=== PATIENT | female | born 1960 | race Caucasian/White ===

== ENCOUNTER → 2016-12-05 | Outpatient (CLI) | payer OTHER ==
--- NOTE | 2016-12-05 16:45 | XR ---
EXAMINATION TYPE: XR chest 2V DATE OF EXAM: 12/05/2016 4:37 PM COMPARISON: History of asthma presents with cough. HISTORY: Prior chest x-ray November 15, 2010. TECHNIQUE: Frontal and lateral views of the chest are obtained. FINDINGS: There is no focal air space opacity, pleural effusion, or pneumothorax seen. The cardiac silhouette size is within normal limits. Underlying scoliosis is redemonstrated. Old left-sided later al rib fractures are less well-seen on current study due to interval healing. IMPRESSION: No acute cardiopulmonary process.
== END | disposition home or self-care (01) ==
LOC: RADXRMAIN 16:24
PROVIDERS: ATTEND Nurse Practitioner Family
DX: R05 Cough (principal)
CPT/HCPCS: 71020

== ENCOUNTER 2017-02-23 18:57 | Emergency (ER) | payer OTHER ==
[2017-02-23] MEDS ORDERED: predniSONE 20 MG TAB PO STA (19:47)
[2017-02-23] MEDS ORDERED: ALBUTEROL NEBULIZED 2.5 MG/3 ML INHALATION STA (19:47)
[2017-02-23] MEDS ORDERED: IPRATROPIUM-ALBUTEROL 3 ML NEB INHALATION STA (19:47)
--- NOTE | 2017-02-23 20:09 | XR ---
EXAMINATION TYPE: XR chest 2V DATE OF EXAM: 02/23/2017 8:05 PM COMPARISON: 12/05/2016 HISTORY: Short of breath TECHNIQUE: Frontal and lateral views of the chest are obtained. FINDINGS: Heart and mediastinum are normal. Lungs are clear. There is a lower thoracic dextroscolios is. There are no hilar masses. There is no pleural effusion. IMPRESSION: No active cardiopulmonary disease. No change.
[2017-02-23 20:33] LABS: Basophils % (A) 0 %; CH 31.3; CHCM 34.4; Eosinophils % (A) 0 %; HCT 41.2 % (34.0-46.0); HDW 2.46; HGB 14.2 gm/dL (11.4-16.0); Luc # (Auto) 0.06; Luc % (Auto) 1; Lymphocytes # (A) 0.5 k/uL (1.0-4.8); Lymphocytes % (A) 8 %; MCH 31.4 pg (25.0-35.0); MCHC 34.3 g/dL (31.0-37.0); MCV 91.5 fL (80.0-100.0); Mean Platelet Volume 6.8; Monocytes # (A) 0.2 k/uL (0-1.0); Monocytes % (A) 3 %; Neutrophils # (A) 5.4 k/uL (1.3-7.7); Neutrophils % (A) 88 %; WBC 6.1 k/uL (3.8-10.6); WBC (Perox) 6.19
[2017-02-23 20:58] LABS: ALT 33 U/L (9-52); AST 26 U/L (14-36); Alkaline Phosphatase 69 U/L (38-126); Anion Gap 14 mmol/L; Blood Urea Nitrogen 8 mg/dL (7-17); Calcium 9.8 mg/dL (8.4-10.2); Carbon Dioxide 21 mmol/L (22-30); Chloride 108 mmol/L (98-107); Glucose 128 mg/dL (74-99); Non-African American GFR(MDRD) >60 (>60 ml/min/1.73 sqM); Potassium 4.3 mmol/L (3.5-5.1); Sodium 143 mmol/L (137-145); Total Bilirubin 0.5 mg/dL (0.2-1.3); Total Protein 7.7 g/dL (6.3-8.2)
--- NOTE | 2017-02-23 21:28 | ED ---
SOB HPI - General Chief Complaint: Shortness of Breath Stated Complaint: Asthma Time Seen by Provider: 02/23/17 19:38 Source: patient Mode of arrival: ambulatory Limitations: no limitations - History of Present Illness Initial Comments: Patient complains of cough and difficulty breathing. She was started on breathing treatments and steroids. She is not feeling any better. She has no chest pain. She has no back pain. She has no lightheadedness or dizziness. She has no pain or swelling the legs. She has no palpitations. She has no neck pain or stiffness. Her symptoms have been getting progressively worse for couple days. - Related Data Home Medications Medication Instructions Recorded Confirmed ALPRAZolam [Xanax] 0.25 mg PO DAILY PRN 05/17/16 02/23/17 Albuterol Inhaler [Ventolin Hfa 2 puff INHALATION RT-Q6H PRN 05/17/16 02/23/17 Inhaler] Budesonide-Formot 160-4.5 Mcg 2 puff INHALATION RT-BID 05/17/16 02/23/17 [Symbicort 160-4.5 Mcg Inhaler] Levothyroxine Sodium [Synthroid] 100 mcg PO DAILY 05/17/16 02/23/17 Vitamin D Drops 1 drop PO DAILY 05/17/16 02/23/17 Albuterol Nebulized [Ventolin 2.5 mg INHALATION DAILY PRN 02/23/17 02/23/17 Nebulized] Ibuprofen [Motrin] 800 mg PO DAILY PRN 02/23/17 02/23/17 Nasal [place] Unknown 1 spray NASAL DAILY PRN 02/23/17 02/23/17 Previous Rx's Medication Instructions Recorded Azithromycin [Zithromax Z-pack] 250 mg PO DIRECTED #6 tab 02/23/17 predniSONE 50 mg PO DAILY #4 tab 02/23/17 Allergies Allergy/AdvReac Type Severity Reaction Status Date / Time latex Allergy Rash/Hives Verified 02/23/17 20:03 hydromorphone HCl AdvReac Confusion Verified 02/23/17 20:03 [From Dilaudid] Review of Systems ROS Statement: Those systems with pertinent positive or pertinent negative responses have been documented in the HPI. ROS Other: All systems not noted in ROS Statement are negative. Past Medical History Past Medical History: Asthma, Osteoarthritis (OA), Pneumonia, Thyroid Disorder History of Any Multi-Drug Resistant Organisms: None Reported Past Surgical History: Section, Orthopedic Surgery Additional Past Surgical History / Comment(s): rt hip surgery(pins), left knee arthroscopy Past Anesthesia/Blood Transfusion Reactions: No Reported Reaction Past Psychological History: No Psychological Hx Reported Smoking Status: Former smoker Past Alcohol Use History: Occasional Additional Past Alcohol Use History / Comment(s): quit smoking 02/2016, smoked for 20 yrs- 1/2 PPD Past Drug Use History: None Reported - Past Family History Mother Family Medical History: No Reported History General Exam Limitations: no limitations General appearance: alert, in no apparent distress Head exam: Present: atraumatic, normocephalic, normal inspection Eye exam: Present: normal appearance, PERRL, EOMI. Absent: scleral icterus, conjunctival injection, periorbital swelling ENT exam: Present: normal exam, mucous membranes moist Neck exam: Present: normal inspection. Absent: tenderness, meningismus, lymphadenopathy Respiratory exam: Present: normal lung sounds bilaterally, wheezes. Absent: respiratory distress, rales, rhonchi, stridor Cardiovascular Exam: Present: regular rate, normal rhythm, normal heart sounds. Absent: systolic murmur, diastolic murmur, rubs, gallop, clicks GI/Abdominal exam: Present: soft, normal bowel sounds. Absent: distended, tenderness, guarding, rebound, rigid Extremities exam: Present: normal inspection, full ROM, normal capillary refill. Absent: tenderness, pedal edema, joint swelling, calf tenderness Back exam: Present: normal inspection Neurological exam: Present: alert, oriented X3, CN II-XII intact Psychiatric exam: Present: normal affect, normal mood Skin exam: Present: warm, dry, intact, normal color. Absent: rash Course Vital Signs 02/23/17 02/23/17 02/23/17 18:58 20:20 20:33 Temperature 97.3 F L Pulse Rate 106 H 88 101 H Respiratory 20 Rate Blood Pressure 157/78 O2 Sat by Pulse 95 Oximetry Medical Decision Making - Medical Decision Making Patient complains of difficulty breathing. Her chest x-rays negative. Her EKG is normal. Her laboratory studies are all normal. She is given breathing treatments and steroids. She is feeling better. Her vital signs are normal. She does not require admission to hospital. She is stable for outpatient follow -up. - Lab Data Result diagrams: 02/23/17 20:15 02/23/17 20:15 Lab Results 02/23/17 02/23/17 02/23/17 Range/Units 20:15 20:15 20:15 WBC 6.1 (3.8-10.6) k/uL RBC 4.50 (3.80-5.40) m/uL Hgb 14.2 (11.4-16.0) gm/dL Hct 41.2 (34.0-46.0) % MCV 91.5 (80.0-100.0) fL MCH 31.4 (25.0-35.0) pg MCHC 34.3 (31.0-37.0) g/dL RDW 13.0 (11.5-15.5) % Plt Count 325 (150-450) k/uL Neutrophils % 88 % Lymphocytes % 8 % Monocytes % 3 % Eosinophils % 0 % Basophils % 0 % Neutrophils # 5.4 (1.3-7.7) k/uL Lymphocytes # 0.5 L (1.0-4.8) k/uL Monocytes # 0.2 (0-1.0) k/uL Eosinophils # 0.0 (0-0.7) k/uL Basophils # 0.0 (0-0.2) k/uL Sodium 143 (137-145) mmol/L Potassium 4.3 (3.5-5.1) mmol/L Chloride 108 H (98-107) mmol/L Carbon Dioxide 21 L (22-30) mmol/L Anion Gap 14 mmol/L BUN 8 (7-17) mg/dL Creatinine 0.56 (0.52-1.04) mg/dL Est GFR (MDRD) Af Amer >60 (>60 ml/min/1.73 sqM) Est GFR (MDRD) Non-Af >60 (>60 ml/min/1.73 sqM) Glucose 128 H (74-99) mg/dL Calcium 9.8 (8.4-10.2) mg/dL Magnesium 2.0 (1.6-2.3) mg/dL Total Bilirubin 0.5 (0.2-1.3) mg/dL AST 26 (14-36) U/L ALT 33 (9-52) U/L Alkaline Phosphatase 69 (38-126) U/L Troponin I (0.000-0.034) ng/mL NT-Pro-B Natriuret Pep 141 pg/mL Total Protein 7.7 (6.3-8.2) g/dL Albumin 4.4 (3.5-5.0) g/dL 02/23/17 Range/Units 20:15 WBC (3.8-10.6) k/uL RBC (3.80-5.40) m/uL Hgb (11.4-16.0) gm/dL Hct (34.0-46.0) % MCV (80.0-100.0) fL MCH (25.0-35.0) pg MCHC (31.0-37.0) g/dL RDW (11.5-15.5) % Plt Count (150-450) k/uL Neutrophils % % Lymphocytes % % Monocytes % % Eosinophils % % Basophils % % Neutrophils # (1.3-7.7) k/uL Lymphocytes # (1.0-4.8) k/uL Monocytes # (0-1.0) k/uL Eosinophils # (0-0.7) k/uL Basophils # (0-0.2) k/uL Sodium (137-145) mmol/L Potassium (3.5-5.1) mmol/L Chloride (98-107) mmol/L Carbon Dioxide (22-30) mmol/L Anion Gap mmol/L BUN (7-17) mg/dL Creatinine (0.52-1.04) mg/dL Est GFR (MDRD) Af Amer (>60 ml/min/1.73 sqM) Est GFR (MDRD) Non-Af (>60 ml/min/1.73 sqM) Glucose (74-99) mg/dL Calcium (8.4-10.2) mg/dL Magnesium (1.6-2.3) mg/dL Total Bilirubin (0.2-1.3) mg/dL AST (14-36) U/L ALT (9-52) U/L Alkaline Phosphatase (38-126) U/L Troponin I <0.012 (0.000-0.034) ng/mL NT-Pro-B Natriuret Pep pg/mL Total Protein (6.3-8.2) g/dL Albumin (3.5-5.0) g/dL 02/23/17 21:25 Twelve-lead EKG is obtained, interpreted by me showing ventricular rate 97 bpm, normal CO interval and QRS, axis, no ST elevation or depression, interpreted by me as normal sinus rhythm. Disposition Clinical Impression: Asthma with exacerbation Disposition: HOME SELF-CARE Condition: Good Instructions: Asthma (ED) Prescriptions: Azithromycin [Zithromax Z-pack] 250 mg PO DIRECTED #6 tab predniSONE 50 mg PO DAILY #4 tab Time of Disposition: 21:27
[2017-02-23 21:35] VITALS: BP 122/79; PULSE 95; RESP 16; TEMP 97.9
== END 2017-02-23 21:35 | disposition home or self-care (01) ==
LOC: EC 18:57
DX: J45.901 Unspecified asthma with (acute) exacerbation (principal); Z79.51 Long term (current) use of inhaled steroids; Z79.899 Other long term (current) drug therapy; Z88.5 Allergy status to narcotic agent; Z91.040 Latex allergy status; Z87.01 Personal history of pneumonia (recurrent); E07.9 Disorder of thyroid, unspecified; Z87.891 Personal history of nicotine dependence
CPT/HCPCS: 36415; 94640; 93005; 83880; 80053; 83735; 84484; 85025; 71020; 99285; J7512

== ENCOUNTER 2019-07-16 22:18 | Emergency (ER) | payer BC, OTHER ==
[2019-07-16 22:22] VITALS: TEMP 98
[2019-07-16] MEDS ORDERED: SODIUM CHLORIDE 0.9% 1,000 ML IV ONE (22:53)
[2019-07-16] MEDS ORDERED: FAMOTIDINE 20 MG/2 ML VIAL IV STA (22:53)
[2019-07-16] MEDS ORDERED: diphenhydrAMINE 50 MG/ML 1 ML VIAL IVP STA (22:53)
[2019-07-16] MEDS ORDERED: methylPREDNISolone SOD SUCCI 125 MG/2 ML VIAL IV STA (22:53)
[2019-07-16] MEDS ORDERED: ONDANSETRON 4 MG/2 ML VIAL IVP STA (23:26)
[2019-07-16 23:49] VITALS: RESP 18
[2019-07-17] MEDS ORDERED: IBUPROFEN 600 MG TAB PO STA (00:35)
[2019-07-17 00:46] VITALS: BP 126/75; PULSE 89
--- NOTE | 2019-07-17 00:47 | ED ---
Allergic Reaction HPI - General Chief complaint: Allergic Reaction Stated complaint: Stung by bee's, doesn't feel right Time Seen by Provider: 07/16/19 22:25 Source: patient Mode of arrival: ambulatory Limitations: no limitations - History of Present Illness Initial Comments: 58 year-old female patient presents to the emergency department today for evalu ation of possible allergic reaction. Patient states she was stung by four times by a hornet around 1pm this afternoon. She was stung twice in the leg and twice in the left upper arm. Patient states that a couple of hours ago she started to feel unwell. Patient states she's been having abdominal cramping and nausea. She is reporting feeling anxious and a dry feeling in her throat. Patient state s she did take an [id number] allergy medication but states she did not take any Benadryl. She denies ever having been stung before. She denies any lip or tongue swelling. Denies any shortness of breath or wheezing. Patient denies any recent rash, fever, chills, vomiting, diarrhea, constipation, back pain, numbness, tingling, dizziness, weakness, hematuria, dysuria, urinary urgency, urinary frequency, headache, visual changes, or any other complaints. - Related Data Home Medications Medication Instructions Recorded Confirmed ALPRAZolam [Xanax] 0.25 mg PO DAILY PRN 05/17/16 02/23/17 Albuterol Inhaler [Ventolin Hfa 2 puff INHALATION RT-Q6H PRN 05/17/16 02/23/17 Inhaler] Budesonide-Formot 160-4.5 Mcg 2 puff INHALATION RT-BID 05/17/16 02/23/17 [Symbicort 160-4.5 Mcg Inhaler] Levothyroxine Sodium [Synthroid] 100 mcg PO DAILY 05/17/16 02/23/17 Vitamin D Drops 1 drop PO DAILY 05/17/16 02/23/17 Albuterol Nebulized [Ventolin 2.5 mg INHALATION DAILY PRN 02/23/17 02/23/17 Nebulized] Ibuprofen [Motrin] 800 mg PO DAILY PRN 02/23/17 02/23/17 Nasal [place] Unknown 1 spray NASAL DAILY PRN 02/23/17 02/23/17 Previous Rx's Medication Instructions Recorded Albuterol Nebulized [Ventolin 2.5 mg INHALATION Q6H #90 nebu 02/23/17 Nebulized] Azithromycin [Zithromax Z-pack] 250 mg PO DIRECTED #6 tab 02/23/17 Carbamide Peroxide [Debrox Otic] 5 drops RIGHT EAR BID #30 ml 02/23/17 predniSONE 50 mg PO DAILY #4 tab 02/23/17 EPINEPHrine [Epipen 2-Jordan] 0.3 mg IM ONCE PRN #1 pack 07/17/19 Famotidine [Pepcid] 20 mg PO DAILY #3 tablet 07/17/19 predniSONE 50 mg PO DAILY #3 tab 07/17/19 Allergies Allergy/AdvReac Type Severity Reaction Status Date / Time latex Allergy Rash/Hives Verified 07/16/19 22:20 hydromorphone HCl AdvReac Confusion Verified 07/16/19 22:20 [From Dilaudid] Review of Systems ROS Statement: Those systems with pertinent positive or pertinent negative responses have been documented in the HPI. ROS Other: All systems not noted in ROS Statement are negative. Past Medical History Past Medical History: Asthma, Osteoarthritis (OA), Pneumonia, Thyroid Disorder History of Any Multi-Drug Resistant Organisms: None Reported Past Surgical History: Section, Orthopedic Surgery Additional Past Surgical History / Comment(s): rt hip surgery(pins), left knee arthroscopy Past Anesthesia/Blood Transfusion Reactions: No Reported Reaction Past Psychological History: No Psychological Hx Reported Smoking Status: Former smoker Past Alcohol Use History: Occasional Past Drug Use History: None Reported - Past Family History Mother Family Medical History: No Reported History General Exam Limitations: no limitations General appearance: alert, in no apparent distress, other (This is a well- developed, well-nourished adult female patient in no acute distress. Vital signs upon presentation are temperature 98.0F, pulse 103, respirations 20, blood pressure 131/89, pulse ox 99% on room air.) Eye exam: Present: normal appearance, PERRL, EOMI. Absent: scleral icterus, con junctival injection, periorbital swelling ENT exam: Present: normal exam, normal oropharynx, mucous membranes moist Respiratory exam: Present: normal lung sounds bilaterally. Absent: respiratory distress, wheezes, rales, rhonchi, stridor Cardiovascular Exam: Present: regular rate, normal rhythm, normal heart sounds. Absent: systolic murmur, diastolic murmur, rubs, gallop, clicks GI/Abdominal exam: Present: soft, normal bowel sounds. Absent: distended, tenderness, guarding, rebound, rigid Extremities exam: Present: full ROM, normal capillary refill, other (There is erythematous wheal noted to the left upper arm. Erythematous wheal noted to the left lateral ankle.). Absent: normal inspection, tenderness, pedal edema, joint swelling, calf tenderness Neurological exam: Present: alert, oriented X3, CN II-XII intact Psychiatric exam: Present: normal affect, normal mood Skin exam: Present: warm, dry, intact, normal color. Absent: rash Course Vital Signs 07/16/19 07/16/19 07/17/19 22:19 23:21 00:44 Temperature 98.0 F Pulse Rate 103 H 95 89 Respiratory 20 18 18 Rate Blood Pressure 131/89 126/82 126/75 O2 Sat by Pulse 99 99 98 Oximetry Medical Decision Making - Medical Decision Making 58 year-old female patient percents to the emergency department today for p ossible ALLERGIC reaction. Patient was stung by a hornet 4 times earlier in the afternoon. She developed abdominal cramping, anxiety, and throat discomfort. Physical examination reveals clear equal lung sounds. Should have localized reaction and swelling to the areas. Patient was given IV fluids and medication here in the emergency department. Upon reevaluation she does report improvement of symptoms. She is requesting discharge home. She'll be discharged with a prescription for prednisone, Pepcid, and EpiPens. She is instructed to continue taking Benadryl every 6 hours. She is instructed to follow-up with her primary care physician for recheck in 1-2 days. Return parameters were discussed in detail. She verbalizes understanding and agrees with this plan. Disposition Clinical Impression: Allergic reaction to bee sting Disposition: HOME SELF-CARE Condition: Good Instructions (If sedation given, give patient instructions): Insect Bite or Sting (ED), General Allergic Reaction (ED) Additional Instructions: Complete medication prescriptions in full. Continue Benadryl every 6 hours as needed. Use EpiPen if you are stung again and have worsening reaction including throat closing, shortness of breath, lip or tongue swelling. Follow-up with your primary care physician for recheck in 1-2 days. Return to the emergency department immediately for any new, worsening, or concerning symptoms. Prescriptions: EPINEPHrine [Epipen 2-Jordan] 0.3 mg IM ONCE PRN #1 pack PRN Reason: Anaphylaxis Famotidine [Pepcid] 20 mg PO DAILY #3 tablet predniSONE 50 mg PO DAILY #3 tab Is patient prescribed a controlled substance at d/c from ED?: No Referrals: Abdi Camargo MD [Primary Care Provider] - 1-2 days Time of Disposition: 00:55
== END 2019-07-17 01:11 | disposition home or self-care (01) ==
LOC: EC 22:18
DX: T63.441A Toxic effect of venom of bees, accidental (unintentional), initial encounter (principal); R10.9 Unspecified abdominal pain; J39.2 Other diseases of pharynx; J45.909 Unspecified asthma, uncomplicated; E07.9 Disorder of thyroid, unspecified; Z87.891 Personal history of nicotine dependence; Z79.51 Long term (current) use of inhaled steroids; Z79.890 Hormone replacement therapy; Z91.040 Latex allergy status; Z88.5 Allergy status to narcotic agent
CPT/HCPCS: 99283; 96374; 96375 ×3; 96361; J1200; J2930; J2405

== ENCOUNTER → 2023-12-29 | Outpatient (CLI) | payer BC ==
--- NOTE | 2024-01-01 07:28 | MM ---
Reason for Exam: Screening (asymptomatic). Last mammogram was performed 1 year(s) and 3 month(s) ago. Patient History: Menarche at age 15. First Full-Term at age 26. Postmenopausal. Unspecified Hormone for 11 years from age 35 until age 46. Risk Values: Yanet 5 year model risk: 1.3%. NCI Lifetime model risk: 6.4%. Prior Study Comparison: 06/04/2020 Bilateral MG 3D screening mammo w/cad, Unknown. 07/01/2021 Bilateral MG 3D screening mammo w/cad, Unknown. 10/13/2022 Bilateral MG 3D screening mammo w/cad, Unknown. Tissue Density: The breast tissue is almost entirely fat. Findings: Analyzed By CAD. There is no suspicious group of microcalcifications or new suspicious mass. Overall Assessment: Negative, BI-RAD 1 Management: Screening Mammogram of both breasts in [address] [facility] will attempt to contact patient to return for supplemental views and ultrasound if indicated. Patient should continue monthly self-breast exams. A clinical breast exam by your physician is recommended on an annual basis. This exam should not preclude additional follow-up of suspicious palpable abnormalities. Note on Yanet scores and lifetime risk: 1. A Yanet score greater than 3% is considered moderate risk. If this is the case, consider specialist referral to assess eligibility for a risk reducing agent. 2. If overall lifetime risk for the development of breast cancer is 20% or higher, the patient may qualify for future screening with alternating mammogram and breast MRI. Electronically signed and approved by: Pool Leonard DO
--- NOTE | 2024-01-01 07:40 | BD ---
EXAMINATION TYPE: Axial Bone Density DATE OF EXAM: 12/29/2023 CLINICAL HISTORY: 63 years old Female. ICD-10 CODE: M85.89 disorder of bone Height: 61 Weight: 133 FRAX RISK QUESTIONS: Family History (Parent hip fracture): no History of Fracture in Adulthood: yes Secondary Osteoporosis: no RISK FACTORS HISTORY OF: Surgery to Hip(right): When: 2016 MEDICATIONS: Thyroid Medications: yes Which medication: Levothyroxine How Lon+ years EXAM MEASUREMENTS: Bone mineral densitometry was performed using the [employer] System. Bone mineral density as measured about the Lumbar spine is: ----- L1-L4(G/cm2): 1.097 T Score Values are as follows: ----- L1: -0.1 ----- L2: -1.9 ----- L3: -1.1 ----- L4: 0.1 ----- L1-L4: -0.7 Z Score Values are as follows: ----- L1: 1.4 ----- L2: -0.4 ----- L3: 0.4 ----- L4: 1.6 ----- L1-L4: 0.8 Bone mineral density has: Decreased -9.4% since study of: 11/17/2010 Bone mineral density about the L hip (g/cm2): 0.836 T Score values are as follows: -----L Neck: -1.1 -----L Total: -1.4 Z Score values are as follows: -----L Neck: 0.3 -----L Total: -0.3 Bone mineral density has: Decreased -23.4% since study of: 11/17/2010 FRAX%s: The graph provided illustrates a 13.0% chance for a major osteoporotic fx and a 0.9% chance f or the hips probability for fx in 10 years time. IMPRESSION: Osteopenia (T Score between -2.5 and -1). There is slightly increased risk of fracture and the patient may be considered for treatment. Re-Screen 2-5 years. NOTE: T-SCORE=SD OF THE YOUNG ADULT MEAN.
== END | disposition home or self-care (01) ==
LOC: RADMAMWWP 15:43
PROVIDERS: ATTEND Family Medicine
DX: Z12.31 Encounter for screening mammogram for malignant neoplasm of breast (principal); M85.89 Other specified disorders of bone density and structure, multiple sites; Z78.0 Asymptomatic menopausal state
CPT/HCPCS: 77063; 77067; 77080

== ENCOUNTER → 2024-05-16 | Outpatient (CLI) | payer BC ==
--- NOTE | 2024-05-16 15:06 | XR ---
EXAMINATION TYPE: XR chest 2V DATE OF EXAM: 05/16/2024 COMPARISON: 337 HISTORY: Shortness of breath TECHNIQUE: Frontal and lateral views of the chest are obtained. FINDINGS: Scattered senescent parenchymal changes noted. Hyperinflation compatible with COPD. Mild peribronchia l cuffing may be present. Correlate for asthma or bronchitis. No evidence for infiltrate. No evidence for atelectasis. Heart size is stable. Mediastinal structures are stable and grossly unremarkable. No evidence for hilar prominence. Degenerative changes dorsal spine. Severe thoracolumbar scoliosis noted. IMPRESSION: 1. Mild peribronchial cuffing may be present. Correlate for asthma or bronchitis. No evidence for pne umonia.
== END | disposition home or self-care (01) ==
LOC: RADXRMAIN 14:40
PROVIDERS: ATTEND Family Medicine
DX: J06.9 Acute upper respiratory infection, unspecified (principal)
CPT/HCPCS: 71046

== ENCOUNTER → 2025-01-22 | Outpatient (CLI) | payer BC | END | disposition home or self-care (01) | LOC: LABPAT 10:53 | PROVIDERS: ATTEND Orthopaedic Surgery | DX: Z01.812 Encounter for preprocedural laboratory examination (principal); M17.11 Unilateral primary osteoarthritis, right knee; Z22.322 Carrier or suspected carrier of Methicillin resistant Staphylococcus aureus | CPT/HCPCS: 87070 ==

== ENCOUNTER 2025-02-18 05:46 | Day surgery (SDC) | payer BC ==
--- NOTE | 2025-02-17 08:27 | P.HPOR ---
History of Present Illness H&P Date: 02/17/25 Chief Complaint: Right knee pain The patient is a 64-year-old retired female who presents with progressive right knee pain for the past year. She is having pain with weightbearing activities. She notes intermittent giving way. She has tried medications in addition to her previous injection without much relief. She notes daily pain that significantly limits her. Review of Systems Per HPI Past Medical History Past Medical History: Asthma, Hyperlipidemia, Osteoarthritis (OA), Pneumonia, Thyroid Disorder Additional Past Medical History / Comment(s): seasonal allergies History of Any Multi-Drug Resistant Organisms: None Reported Past Surgical History: Section, Joint Replacement, Orthopedic Surgery Additional Past Surgical History / Comment(s): rt hip surgery(pins) and replacement, left knee arthroscopy, left knee replaced, sinus surgery, colonoscopy Past Anesthesia/Blood Transfusion Reactions: No Reported Reaction Additional Past Anesthesia/Blood Transfusion Reaction / Comment(s): daughter slow to wake Smoking Status: Former smoker - Past Family History Mother Family Medical History: No Reported History Additional Family Medical History / Comment(s): kidney disease Father Family Medical History: Cancer Additional Family Medical History / Comment(s): lung cancer Medications and Allergies Home Medications Medication Instructions Recorded Confirmed Type Albuterol Inhaler [Ventolin Hfa 2 puff INHALATION RT-Q6H PRN 05/17/16 02/12/25 History Inhaler] Budesonide-Formot 160-4.5 Mcg 2 puff INHALATION RT-BID 05/17/16 02/12/25 History [Symbicort 160-4.5 Mcg Inhaler] Levothyroxine Sodium [Synthroid] 100 mcg PO DAILY 05/17/16 02/12/25 History Albuterol Nebulized [Ventolin 2.5 mg INHALATION DAILY PRN 02/23/17 02/12/25 History Nebulized] Ibuprofen [Motrin] 800 mg PO BID 02/23/17 02/12/25 History EPINEPHrine [Epipen 2-Jordan] 0.3 mg IM ONCE PRN #1 pack 07/17/19 02/12/25 Rx Atorvastatin [Lipitor] 10 mg PO DAILY 02/12/25 02/12/25 History Fluticasone Nasal [place] [Flonase 1 spray EA NOSTRIL DAILY PRN 02/12/25 02/12/25 History Nasal [place]] Gabapentin [Neurontin] 100 mg PO HS 02/12/25 02/12/25 History Allergies Allergy/AdvReac Type Severity Reaction Status Date / Time latex Allergy Rash/Hives Verified 02/12/25 10:38 shellfish derived [Shrimp] Allergy testing. Verified 02/12/25 10:38 shrimp Allergy per testing Verified 02/12/25 10:38 hydromorphone HCl AdvReac Confusion Verified 02/12/25 10:38 [From Dilaudid] Physical Examination - Knee right Appearance: effusion Effusion grade: grade 1 Varus alignment in stance: 5 degrees Tenderness with palpation: anterior, medial Pain: throughout ROM Gait: limping ROM: extension: -5 degrees ROM: flexion: 120 degrees Crepitus with motion: Yes Strength: extension: 5/5 Strength: flexion: 5/5 Meniscal tests: medial meniscal tests: positive, medial joint line pain: positive Results The patient is a well-developed well-nourished female approximately 5 foot 2, 137 pounds of mesomorphic habitus. HEENT exam is nonfocal, neck is supple. She has painless passive motion of the right hip. Straight leg raise is negative. She is tender about the medial joint line of the right knee. Collaterals are stable, Mark's negative, Ronda's is equivocal. Her distal neurovascular exam appears intact in the right lower extremity. She does have an antalgic gait pattern. - Diagnostic results Knee x-ray: image reviewed (X-rays of the right knee obtained the office show severe medial compartment narrowing with subchondral sclerosis and flattening of the articular surface.) Assessment and Plan Assessment: Right knee severe medial compartment osteoarthrosis Plan: I talked to the patient at length regarding her condition along with treatment options. At this point she is quite symptomatic having pain and mechanical symptoms related to her right knee osteoarthrosis despite conservative measures. After a thorough discussion she opts to proceed with surgery. We will plan to proceed with right total knee arthroplasty. Risks and benefits were discussed at length in layman's terms. We will institute DVT prophylaxis postoperatively.
[~2025-02-18 05:46] MED LIST: TRANEXAMIC 1,000 MG/100ML-NACL 1,000 MG in SALINE 1 100ML.BAG IVPB PRN
[2025-02-18] MEDS: IV FLUID CONTINUATION 1,000 ML IV ONE ×2 (06:13→10:57)
[2025-02-18] MEDS: ACETAMINOPHEN TAB 500 MG TAB PO PRN (06:44)
[2025-02-18] MEDS: MELOXICAM 7.5 MG TAB PO PRN (06:44)
[2025-02-18] MEDS: LACTATED RINGERS 1,000 ML IV SCH (06:45)
[2025-02-18] MEDS: DEXAMETHASONE SOD PHOSPHATE 4 MG/ML 1 ML VIAL IV ONE (06:45)
[2025-02-18] MEDS: ONDANSETRON 4 MG/2 ML VIAL IVP ONE (06:45)
[2025-02-18] MEDS: MIDAZOLAM 2 MG/2 ML VIAL IV ONE (07:05)
[2025-02-18] MEDS ORDERED: SUCCINYLCHOLINE CHLORIDE 200 MG/10 ML VIAL IV ONE (07:33)
[2025-02-18] MEDS ORDERED: LIDOCAINE 1% INJ 10MG/ML (20 ML MDV) ONE (07:33)
[2025-02-18] MEDS ORDERED: ROPIVACAINE 5 MG/ML 30 ML VIAL ONE (07:33)
[2025-02-18] MEDS ORDERED: DEXAMETHASONE SOD PHOSPHATE 4 MG/ML 1 ML VIAL ONE (07:33)
[2025-02-18] MEDS ORDERED: PROPOFOL 10 MG/ML 20 ML VIAL IV ONE (07:33)
[2025-02-18] MEDS ORDERED: MIDAZOLAM 2 MG/2 ML VIAL ONE (07:33)
[2025-02-18] MEDS ORDERED: fentaNYL (PF) 50 MCG/ML 2 ML AMP ONE (07:33)
[2025-02-18] MEDS ORDERED: ROCURONIUM 10 MG/ML (5 ML VIAL) IV ONE (07:33)
[2025-02-18] MEDS ORDERED: TRANEXAMIC 1,000 MG/100ML-NACL PREMIX BAG ONE (07:33)
[2025-02-18] MEDS ORDERED: GLYCOPYRROLATE 0.2 MG/ML 2 ML VIAL ONE (07:33)
[2025-02-18] MEDS ORDERED: NEOSTIGMINE 1 MG/ML 10 ML VIAL ONE (07:33)
[2025-02-18] MEDS: ceFAZolin 1,000 MG in SODIUM CHLORIDE 0.9% 1,000 ML IRRIGATION ONE (08:16)
[2025-02-18] MEDS: LACTATED RINGERS 1,000 ML IV ONE (08:48)
[2025-02-18] MEDS ORDERED: MAGNESIUM HYDROXIDE 2,400 MG/30 ML CUP PO PRN (09:17)
[2025-02-18] MEDS ORDERED: hydrOXYzine pamoate 25 MG CAP PO PRN (09:17)
[2025-02-18] MEDS ORDERED: HYDROcodone/APAP 5-325MG 1 EACH TAB PO PRN ×2 (09:17→19:16)
[2025-02-18] MEDS ORDERED: HYDROmorphone 0.5 MG/0.5 ML SYRINGE IVP PRN (09:17)
[2025-02-18] MEDS ORDERED: NALOXONE 0.4 MG/ML 1 ML VIAL IV PRN (09:17)
--- NOTE | 2025-02-18 09:35 | P.OP ---
Date of Procedure: 02/18/25 Preoperative Diagnosis: Right knee severe tricompartmental osteoarthrosis Postoperative Diagnosis: Same Procedure(s) Performed: Right total knee arthroplastycruciate retainingcemented Implants: [employer] journey 2 size 5 cemented femoral component, size 4 cemented tibial component, 10 mm articular surface, 29 mm cemented patellar component. This is a cruciate retaining implant. Anesthesia: GETA Surgeon: Ray Ernst First Leveler #1: Zain Carrasco Estimated Blood Loss (ml): 50 Pathology: none sent Condition: stable Disposition: PACU Indications for Procedure: The patient is a 64-year-old female who presents with progressive right knee pain secondary to osteoarthrosis despite conservative measures. A discussion of the risks and benefits of operative intervention versus continued conservative measures was made with the patient. She opted to proceed with surgery. Operative risks include infection, neurovascular injury, development of blood clots, fracture, possible component loosening/failure and possible need for subsequent procedures was discussed. Informed consent was obtained. Operative Findings: As below Description of Procedure: The patient was brought to the operating room, and after induction of spinal anesthesia the right lower extremity was prepped and draped in a normal fashion. The tourniquet was inflated to 270 mmHg. A longitudinal incision extending 3 finger breaths above the superior pole of the patella extending to the medial aspect the tibial tubercle was then made. The skin and subcutaneous tissues were divided sharply. Electrocautery was used for hemostasis. A medial parapatellar arthrotomy was then performed. The medial soft tissues to include the superficial and deep portions of the medial collateral ligament as well as the medial hamstring tendons were elevated subperiosteally. The proximal medial tibia osteophytes were carefully removed. The patella was everted. The knee was flexed. A portion of the retropatellar fat pad was excised sharply. The anterior cruciate ligament was sacrificed. A starting hole was made in the distal femur 1 cm anterior to the posterior cruciate origin. An intramedullary femoral guide was gently inserted planning on 5 valgus distal cut with 9 mm distal resection. The cutting block was pinned in place. The distal cut was then made. The posterior referencing sizing guide was utilized. 3 of external rotation was built into the system and verified off the trans- epicondylar axis and the posterior condyles. I felt size 5 was most appropriate. The cutting block was pinned in place. The anterior, posterior, and chamfer cuts were then made. The bone fragments were removed. A sulcus cut was then made with the appropriate guide. The trial size 5 femoral component was then placed and was fully seated. There was good anterior to posterior and medial to lateral fit. The distal peg holes were then drilled. The trial component was then removed. Attention was then paid towards preparing the proximal tibia. An extra medullary guide was utilized in line with the tibial shaft and second metatarsal distally. A 7 posterior slope was planned. I planned on 2 mm resection from the medial compartment. The cutting block was pinned in place. The proximal tibial cut was then made. The bone was removed in one fragment. The remnants of the medial and lateral menisci were excised the capsule junction with electrocautery. The tibia sized most appropriately at size 4. The posterior osteophytes off the distal femur were carefully removed with a curved osteotome. The trial tibial and femoral components were placed along with a 10 millimeters articular surface. I was able to obtain full flexion and extension with good stability with varus and valgus stress. After several flexion and extension cycles, the tibial rotation was marked with electrocautery in line with the medial one third of the tibial tubercle. Attention was then paid towards preparing the patella. A patella reamer was utilized taking this down to 14 mm of bone stock. A good flush cut was made. The patella sized most appropriately at 29 millimeters. The peg holes were then drilled. The trial component was placed. The knee was taken through a range of motion. I had good patellofemoral tracking with no hands technique. The trial components were then removed. The tibia was prepared in the appropriate rotation with appropriate drill and keel punch. The flexion and extension gaps were checked and felt to be symmetric. The bony surfaces were prepared with pulsatile lavage and dried. The deep tibial component was then cemented in place and was fully seated. Excess cement was removed. The femoral component was cemented in place and was fully seated. Again excess cement was removed. The trial 10 millimeters surface was then inserted in the knee was put in full extension. The patella component was cemented in place. After the cement had sufficiently hardened, the knee was again taken through a range of motion. Again there was good stability in flexion and extension with varus and valgus stress. The trial articular surface was then removed. The final articular surface was placed and was impacted. Care was taken to avoid any soft tissue interposition. Pulsatile lavage was again utilized. The tourniquet was deflated with approximately 50 minutes total tourniquet time. There was minimal drainage therefore a deep drain was not placed. The medial parapatellar arthrotomy was then closed with #2 Ethibond suture. The subcutaneous tissues were reapproximated interrupted 2-0 Vicryl sutures. The skin was reapproximated with 3-0 subarticular strata fix suture. Skin tape and adhesive was applied. A sterile dressing was applied. The patient was then awoken from sedation and transferred to recovery room in good condition. Blood loss was estimated at 50 milliliters. No complications were incurred. Sponge and needle counts were co rrect at the end the case. Zian MARCIAL assisted during the major components this case to include exposure, bone resection, and implantation.
[2025-02-18] MEDS: ONDANSETRON 4 MG/2 ML VIAL IVP PRN (09:55)
[2025-02-18] MEDS: fentaNYL (PF) 50 MCG/ML 2 ML AMP IV PRN (09:57)
[2025-02-18] MEDS ORDERED: ROPIVACAINE 1,100 MG, SODIUM CHLORIDE 0.9% 500 ML 330 ML, EMPTY PAIN BALL 1 EACH MISCELLANE PRN (10:01)
--- NOTE | 2025-02-18 10:04 | XR ---
EXAMINATION TYPE: XR knee limited RT DATE OF EXAM: 02/18/2025 9:59 AM INDICATION: Patient age:Female; 64 years old; Reason for study: Evaluation for Postop abnormality and alignment; PHH. pain COMPARISON: Right knee radiograph 09/25/2024 TECHNIQUE: The Right knee(s) was examined in frontal and lateral projections. FINDINGS: Status post total knee arthroplasty changes with hardware in appropriate alignment and in tact. No evidence of fracture. Subcutaneous lucencies and lucencies within the joint consistent with surgical changes. IMPRESSION: Status post total knee arthroplasty changes with hardware intact and appropriate alignment. No fractu res identified. [facility], , 02/18/2025 10:01 AM
[2025-02-18] MEDS: HYDROmorphone 0.5 MG/0.5 ML SYRINGE IVP PRN (10:54)
[2025-02-18] MEDS: HYDROcodone/APAP 7.5-325MG 1 EACH TAB PO PRN ×2 (12:07→20:48)
[2025-02-18] MEDS ORDERED: FLUTICASONE NASAL 50MCG/SPRAY 16GM BTL EA NOSTRIL PRN (14:30)
[2025-02-18] MEDS ORDERED: IPRATROPIUM-ALBUTEROL 3 ML NEB INHALATION PRN (14:32)
--- NOTE | 2025-02-18 14:34 | P.CONS ---
History of Present Illness - Reason for Consult Consult date: 02/18/25 Medical management Requesting physician: Ray Ernst - Chief Complaint Right knee pain, right knee osteoarthrosis - History of Present Illness This is a 64-year-old female status post elective right total knee arthroplasty, failed conservative management- just returning back to the floor from recovery room. Tolerated procedure well. Feels l"oopy"denies nausea vomiting. Denies chest pain, palpitations or shortness of breath. Vital signs stable, maintaining O2 sats in the high 90s on room air. Review of Systems ROS Statement: Those systems with pertinent positive or pertinent negative responses have been documented in the HPI. ROS Other: All systems not noted in ROS Statement are negative. Past Medical History Past Medical History: Asthma, Hyperlipidemia, Osteoarthritis (OA), Pneumonia, Thyroid Disorder Additional Past Medical History / Comment(s): seasonal allergies History of Any Multi-Drug Resistant Organisms: None Reported Past Surgical History: Section, Joint Replacement, Orthopedic Surgery Additional Past Surgical History / Comment(s): rt hip surgery(pins) and replacement, left knee arthroscopy, left knee replaced, sinus surgery, colonoscopy Past Anesthesia/Blood Transfusion Reactions: No Reported Reaction Additional Past Anesthesia/Blood Transfusion Reaction / Comm: daughter slow to wake Smoking Status: Former smoker - Past Family History Mother Family Medical History: No Reported History Additional Family Medical History / Comment(s): kidney disease Father Family Medical History: Cancer Additional Family Medical History / Comment(s): lung cancer Medications and Allergies Home Medications Medication Instructions Recorded Confirmed Type Albuterol Inhaler [Ventolin Hfa 2 puff INHALATION RT-Q6H PRN 05/17/16 02/18/25 History Inhaler] Budesonide-Formot 160-4.5 Mcg 2 puff INHALATION RT-BID 05/17/16 02/18/25 History [Symbicort 160-4.5 Mcg Inhaler] Levothyroxine Sodium [Synthroid] 100 mcg PO DAILY 05/17/16 02/18/25 History Albuterol Nebulized [Ventolin 2.5 mg INHALATION DAILY PRN 02/23/17 02/18/25 History Nebulized] Ibuprofen [Motrin] 800 mg PO BID 02/23/17 02/18/25 History EPINEPHrine [Epipen 2-Jordan] 0.3 mg IM ONCE PRN #1 pack 07/17/19 02/18/25 Rx Atorvastatin [Lipitor] 10 mg PO DAILY 02/12/25 02/18/25 History Fluticasone Nasal [place] [Flonase 1 spray EA NOSTRIL DAILY PRN 02/12/25 02/18/25 History Nasal [place]] Gabapentin [Neurontin] 100 mg PO HS 02/12/25 02/18/25 History Allergies Allergy/AdvReac Type Severity Reaction Status Date / Time latex Allergy Rash/Hives Verified 02/18/25 06:14 shellfish derived [Shrimp] Allergy testing. Verified 02/18/25 06:14 shrimp Allergy per testing Verified 02/18/25 06:14 hydromorphone HCl AdvReac Confusion Verified 02/18/25 06:14 [From Dilaudid] Physical Exam Vitals: Vital Signs Temp Pulse Resp BP Pulse Ox 02/18/25 13:27 97.7 F 61 18 120/72 98 02/18/25 12:30 69 16 113/59 98 02/18/25 12:00 82 18 125/67 97 02/18/25 11:30 52 L 18 128/59 100 02/18/25 11:15 66 17 132/62 100 02/18/25 11:00 54 L 17 128/63 100 02/18/25 10:45 70 16 157/68 100 02/18/25 10:30 50 L 16 142/66 100 02/18/25 10:15 62 16 119/59 100 02/18/25 10:00 56 L 14 133/65 100 02/18/25 09:45 72 14 146/68 100 02/18/25 09:33 97.6 F 73 14 152/67 100 02/18/25 07:20 97.6 F 74 16 138/70 100 Intake and Output 02/17/25 02/18/25 02/18/25 22:59 06:59 14:59 Intake Total 500 1651 Output Total 50 Balance 500 1601 Intake: IV 500 1651 Output: Estimated Blood Loss 50 Other: Weight 61.3 kg PHYSICAL EXAM: VITAL SIGNS: [Reviewed] GENERAL: Alert and oriented x 3, lying in bed, no acute distress HEENT: Conjunctivae normal. eyes normal. NECK: Supple, no JVD. No LNs CARDIOVASCULAR: S1, S2 regular. No murmur RESPIRATION: Unlabored, equal air entry, breath sounds diminished in the bases. ABDOMEN: Soft, nontender . No guarding. no masses palpable. Positive bowel sounds LEGS: Right lower extremity Marbin wrap dressing clean dry and intact with ice bags taped around site. NERVOUS SYSTEM: Cranial N 2-12 grossly normal. Skin: warm and dry, no rash Assessment and Plan Assessment: Right knee osteoarthritis, failed conservative management status post right total knee arthroplasty Asthma, stable Seasonal allergies, stable Hypothyroidism Former nicotine dependence Plan: Continue on current medication regime ,monitoring and symptomatic treatment. Aggressive pulmonary toileting, incentive spirometer ordered. Home meds have been reviewed and resumed accordingly. DVT prophylaxis with Xarelto in place. PPI ordered for GI prophylaxis. Pain management as per primary. CBC in a.m. thank you for the consult. The impression and plan of care has been dictated as directed. : I performed a history and examination of this patient, discussed the same with the dictator. I agree with the dictator's note ,documented as a scribe. Any additional findings or plans will be noted. CBC
[2025-02-18] MEDS: PANTOPRAZOLE 40 MG/10 ML VIAL IVP SCH (15:54)
[2025-02-18] MEDS: SYMBICORT 160-4.5 MCG INHALER INHALATION SCH (20:38)
[2025-02-18] MEDS: SENNOSIDES-DOCUSATE SODIUM 1 EACH TAB PO SCH (20:48)
[2025-02-19] MEDS: LEVOTHYROXINE 100 MCG TAB PO SCH (05:46)
--- NOTE | 2025-02-19 07:02 | P.PN ---
Progress Note - Text Progress Note Date: 02/19/25 Postoperative day # 1 status post total knee arthroplasty, and adductor canal catheter placed for postoperative analgesia, currently at ropivacaine 0.2% 8 mL per hour and continuous infusion, visual analogue scale is 5/10, patient using oral pain medication for breakthrough pain. Assessment and plan= Acute postoperative pain, adductor canal catheter for pain control, pain is well controlled we'll continue the same management.
[2025-02-19 07:54] VITALS: BP 142/78; PULSE 60; RESP 18; TEMP 98
[2025-02-19 08:44] LABS: Basophils # (A) 0.04 X 10*3/uL (0.00-0.10); Basophils % (A) 0.3 %; Eosinophils # (A) 0.01 X 10*3/uL (0.04-0.35); Eosinophils % (A) 0.1 %; HCT 30.7 % (37.2-46.3); HGB 10.4 g/dL (12.0-15.0); Lymphocytes # (A) 2.04 X 10*3/uL (0.90-5.00); Lymphocytes % (A) 15.8 %; MCH 31.5 pg (27.0-32.0); MCHC 33.9 g/dL (32.0-37.0); Mean Platelet Volume 10.3 FL (9.5-12.2); Monocytes # (A) 1.39 X 10*3/uL (0.20-1.00); Monocytes % (A) 10.8 %; NRBC Per 100 WBC 0 X 10*3/uL (0.00-0.01); Neutrophils # (A) 9.38 X 10*3/uL (1.80-7.70); Neutrophils % (A) 72.7 %; Platelet Count 328 X 10*3/uL (140-440); RDW 12.7 % (11.5-14.5)
[2025-02-19] MEDS: RIVAROXABAN 10 MG TAB PO SCH (09:25)
--- NOTE | 2025-02-19 11:02 | P.ANPRN ---
Procedure Note - Anesthesia - Nerve Block Performed Right Adductor Canal Infusion Time Out Performed: Yes Date of Procedure: 02/18/25 Procedure Start Time: 07:05 Procedure Stop Time: 07:16 Location of Patient: PreOp Indication: Acute Post-Operative Pain, Requested by Surgeon Sedation Type: Sedate with meaningful contact maintained Preparation: Sterile Prep, Sterile Dressing Position: Supine Catheter: Indwelling Needle Types: On-Q Needle Gauge: 21 Ultrasound used to visualize needle placement: Yes Ultrasound used to observe medication spread: Yes Blood Aspirated: No Pain Paresthesia on Injection Noted: No Resistance on Injection: Normal Image Stored and Saved: Yes Events: Uneventful and Well Tolerated (Ropivacaine 0.5% 20 cc plus dexamethasone 4 mg)
--- NOTE | 2025-02-19 11:03 | P.ANPRN ---
Procedure Note - Anesthesia - Nerve Block Performed Right iPack Single Time Out Performed: Yes Date of Procedure: 02/18/25 Procedure Start Time: 07:17 Procedure Stop Time: 07:20 Location of Patient: PreOp Indication: Acute Post-Operative Pain, Requested by Surgeon Sedation Type: Sedate with meaningful contact maintained Preparation: Sterile Prep Position: Left Lateral Needle Types: Pajunk Needle Gauge: 21 Ultrasound used to visualize needle placement: Yes Ultrasound used to observe medication spread: Yes Blood Aspirated: Yes Pain Paresthesia on Injection Noted: Yes Resistance on Injection: Normal Image Stored and Saved: Yes Events: Uneventful and Well Tolerated (Ropivacaine 0.5% 20 cc plus dexamethasone 4 mg)
--- NOTE | 2025-02-19 12:02 | P.DS ---
Providers Date of admission: 02/18/2025 Expected date of discharge: 02/19/25 Attending physician: Ray Ernst Consults: 02/18/25 09:17 Consult Physician Routine Consulting Provider: Abdi Camargo Reason/Comments: medical management s/p RTKA Do you want consulting provider notified?: Yes Primary care physician: Abdi Camargo Hospital Course: Date of admission: 02/18/2025 Date of discharge: 02/19/2025 Admission diagnosis: Right knee osteoarthritis Discharge diagnosis: Same Attending physician: Dr. Ernst Surgical procedures: Right total knee arthroplasty Brief history: Patient is a 64-year-old female with a history of progressive primary right knee osteoarthritis. At this point patient has failed conservative treatment measures and has opted to proceed with a elective right total knee arthroplasty. Hospital course: Details of patient's surgery can be found in operative report. Patient tolerated the procedure well and was subsequently transported to or opedi floor. Patient's orthopeidc and medical care was provided daily. Patient had daily laboratory tests performed for evaluation of overall blood counts. Patient had daily physical therapy to include strengthening range of motion as well as education with walker ambulation. Patient was treated with Xarelto for their postoperative DVT prophylaxis during their inpatient stay. Patient was noted to have a relatively uneventful postoperative course. Patient reported satisfactory pain control with oral pain medications by postoperative day 1. Patient showed satisfactory progress with physical therapy. Patient moved steadily through the program and had no difficulty meeting the goals by postoperative day 1. Given patient's otherwise satisfactory course and having met physical therapy goals, plan is to discharge patient home with health services on postoperative day 1. Discharge condition/disposition: Patient will be discharged home with health services in stable condition. Discharge medications: Instructions are given on resumption of patient's normal daily medications per primary care recommendation, in addition patient will be prescribed Pandora; senna; Eliquis 2.5 mg twice daily x 2 weeks. Discharge instructions: 1. Wound care and infection precautions, keep incision dry and covered while showering, no lotions, creams, moisturizers. No soaking, tubs, pools, hottubs. D o not scrub over the incision. 2. Weight-bear as tolerated with walker / cane until follow-up. 3. Ice and elevate when necessary. Do not exceed 20 minutes per hour with ice pack. 4. Utilize compression sleeve until seen at first follow up appointment. 5. Visiting nursing care. 6. Home physical therapy including home CPM. 7. Pain meds and anticoagulants per prescription. 8. Pain medication has potential to cause constipation. Increase oral fluid and fiber intake. Contact primary care provider if you have not had a bowel movement within 48 hours after discharge 9. No anti-inflammatory medication until discussed at first post operative visit, this including Motrin, Aleve, Mobic, Diclofenac. 10. Follow up in office at 2 weeks postop with Houston Murillo PA-C / Zain Carrasco PA-C 11. Follow up with your primary care doctor 7-10 days after discharge. 12. Contact [facility] with any questions, . Assessment: Right knee osteoarthritis Procedures: Right total knee arthroplasty Patient Condition at Discharge: Good Plan - Discharge Summary Discharge Rx Participant: Yes New Discharge Prescriptions: New Sennosides-Docusate Sodium [Senokot-S] 2 each PO HS tab Apixaban [Eliquis] 2.5 mg PO BID #60 tab HYDROcodone/APAP 7.5-325MG [Pandora 7.5-325] 1 tab PO Q6HR PRN #28 tab PRN Reason: Pain Continue Albuterol Inhaler [Ventolin Hfa Inhaler] 2 puff INHALATION RT-Q6H PRN PRN Reason: Shortness Of Breath Levothyroxine Sodium [Synthroid] 100 mcg PO DAILY Budesonide-Formot 160-4.5 Mcg [Symbicort 160-4.5 Mcg Inhaler] 2 puff INHALATION RT-BID Albuterol Nebulized [Ventolin Nebulized] 2.5 mg INHALATION DAILY PRN PRN Reason: Shortness Of Breath EPINEPHrine [Epipen 2-Jordan] 0.3 mg IM ONCE PRN #1 pack PRN Reason: Anaphylaxis Atorvastatin [Lipitor] 10 mg PO DAILY Fluticasone Nasal [place] [Flonase Nasal [place]] 1 spray EA NOSTRIL DAILY PRN PRN Reason: Congestion Gabapentin [Neurontin] 100 mg PO HS Discontinued Ibuprofen [Motrin] 800 mg PO BID Discharge Medication List Albuterol Inhaler [Ventolin Hfa Inhaler] 2 puff INHALATION RT-Q6H PRN 05/17/16 [History] Budesonide-Formot 160-4.5 Mcg [Symbicort 160-4.5 Mcg Inhaler] 2 puff INHALATION RT-BID 05/17/16 [History] Levothyroxine Sodium [Synthroid] 100 mcg PO DAILY 05/17/16 [History] Albuterol Nebulized [Ventolin Nebulized] 2.5 mg INHALATION DAILY PRN 02/23/17 [History] EPINEPHrine [Epipen 2-Jordan] 0.3 mg IM ONCE PRN #1 pack 07/17/19 [Rx] Atorvastatin [Lipitor] 10 mg PO DAILY 02/12/25 [History] Fluticasone Nasal [place] [Flonase Nasal [place]] 1 spray EA NOSTRIL DAILY PRN 02/12/25 [History] Gabapentin [Neurontin] 100 mg PO HS 02/12/25 [History] Apixaban [Eliquis] 2.5 mg PO BID #60 tab 02/19/25 [Rx] HYDROcodone/APAP 7.5-325MG [Pandora 7.5-325] 1 tab PO Q6HR PRN #28 tab 02/19/25 [Rx] Sennosides-Docusate Sodium [Senokot-S] 2 each PO HS tab 02/19/25 [Rx] Follow up Appointment(s)/Referral(s): Zain Carrasco PAC [PHYSICIAN [facility]] - 2 Weeks Abdi Camargo MD [Primary Care Provider] - 1 Week Patient Instructions/Handouts: Knee Replacement (GEN) Activity/Diet/Wound Care/Special Instructions: Orthopedic Discharge Instructions: 1. Wound care and infection precautions, keep incision dry and covered while showering, no lotions, creams, moisturizers. No soaking, pools, hot tubs. Do not scrub over incision. 2. Weight-bear as tolerated with walker / cane until follow-up. 3. Ice and elevate when necessary. Do not exceed 20 minutes per hour with ice pack. 4. Utilize compression sleeve until seen at first follow up appointment. 5. Pain meds and anticoagulants per prescription. 6. Pain medication has potential to cause constipation. Increase oral fluid and fiber intake. Contact primary care provider if you have not had a bowel movement within 48 hours after discharge. 7. No anti-inflammatory medication until discussed at first post operative visit, this including Motrin, Aleve, Mobic, Diclofenac. 8. Follow up in office at 2 weeks postop with Houston Murillo PA-C / Zain Carrasco PA-C 9. Follow up with your primary care doctor 7-10 days after discharge. 10. Contact [facility] with any questions, . aspirin as tolerated keep incision dry and covered while showering. Keep incision clean, dry, intact. While showering, cover fusion tape with Saran wrap. Keep fusion tape on until follow-up appointment office in 2 weeks. Discharge Disposition: HOME WITH HOME HEALTH SERVICES
--- NOTE | 2025-02-19 12:42 | P.PN ---
Subjective Progress Note Date: 02/19/25 Principal diagnosis: Right knee osteoarthritis Patient was seen at bedside this morning sitting up in chair with dressing present over right knee. Patient says she just finished working with PT/OT and walked down the hallway and up and down stairs. She says her pain is under good control with Hoopa. She says she has urinated several times since surgery yesterday without issue. She says she does have a walker for home and she will have family to help her out when she does go home. Patient denies any other issues at this time. Objective - Vital Signs Vital signs: Vital Signs Temp 98 F 02/19/25 07:03 Pulse 60 02/19/25 07:03 Resp 18 02/19/25 07:03 BP 142/78 02/19/25 07:03 Pulse Ox 98 02/19/25 07:03 FiO2 Intake & Output 02/18/25 02/19/25 02/19/25 18:59 06:59 18:59 Intake Total 1651 Output Total 50 Balance 1601 Weight 61.3 kg Intake: IV 1651 Output: Estimated Blood Loss 50 Other: Voiding Method Toilet # Voids 2 2 1 - Exam Right knee: Incision is clean, dry, and intact. The exofin fusion tape is in good condition. There is minimal soft tissue swelling and ecchymosis surrounding the medial and lateral aspects of the incision. Calf is soft, no tenderness with palpation. Plantar flexion, dorsiflexion, EHL, FHL are intact. Sensory exam to light touch throughout the extremity is intact, dorsal pedis pulses 2+. - Labs CBC & Chem 7: 02/19/25 03:04 Labs: Abnormal Lab Results - Last 24 Hours (Table) 02/19/25 Range/Units 03:04 WBC 12.90 H (4.50-10.00) X 10*3/uL RBC 3.30 L (4.10-5.20) X 10*6/uL Hgb 10.4 L (12.0-15.0) g/dL Hct 30.7 L (37.2-46.3) % Neutrophils # 9.38 H (1.80-7.70) X 10*3/uL Monocytes # 1.39 H (0.20-1.00) X 10*3/uL Eosinophils # 0.01 L (0.04-0.35) X 10*3/uL Assessment and Plan Assessment: 1. Right knee osteoarthritis -Postop day 1 status post right total knee arthroplasty Plan: 1. Right knee osteoarthritis -right total knee arthroplasty performed yesterday, 02/18/2025. Patient stable bedside this morning. Patient does have a walker for home. Pain under well-controlled with Hoopa every 6 hours. Patient did do well with PT/OT. Discharge home today with health services. 2. Appreciate medical management 3. Pain management -Hoopa 4. DVT prophylaxis -Xarelto in hospital. Going home with Eliquis 2.5 mg twice daily x 2 weeks 5. GI prophylaxis -senna 6. PT/OT -weightbearing as tolerated walker 7. Encourage incentive spirometer use 8. Discharge planning -home today with health services Time with Patient: Less than 30
--- NOTE | 2025-02-19 12:59 | P.PN ---
Subjective Progress Note Date: 02/19/25 This is a 64-year-old female status post elective right total knee arthroplasty, failed conservative management- just returning back to the floor from recovery room. Tolerated procedure well. Feels l"oopy"denies nausea vomiting. Denies chest pain, palpitations or shortness of breath. Vital signs stable, maintaining O2 sats in the high 90s on room air. 02/19/2025 reports she had a rough night last night with nausea, vomiting which has subsided this morning. Positive pain, recently medicated. Passing flatus. Denies chest pain, palpitations or shortness of breath. Maintaining O2 sats in the 90s on room air. Perform stairs with PT; denies lightheadedness dizziness or focal deficits. Objective - Vital Signs Vital signs: Vital Signs Temp 98 F 02/19/25 07:03 Pulse 60 02/19/25 07:03 Resp 18 02/19/25 07:03 BP 142/78 02/19/25 07:03 Pulse Ox 98 02/19/25 07:03 FiO2 Intake & Output 02/18/25 02/19/25 02/19/25 18:59 06:59 18:59 Intake Total 1651 Output Total 50 Balance 1601 Weight 61.3 kg Intake: IV 1651 Output: Estimated Blood Loss 50 Other: Voiding Method Toilet # Voids 2 2 1 - Exam PHYSICAL EXAM: VITAL SIGNS: [Reviewed] GENERAL: Alert and oriented x 3, sitting up in chair, no acute distress HEENT: Conjunctivae normal. eyes normal. MMM. NECK: Supple, no JVD. No LNs CARDIOVASCULAR: S1, S2 regular. No murmur RESPIRATION: Unlabored, equal air entry, breath sounds diminished in the bases. ABDOMEN: Soft, nontender . No guarding. no masses palpable. Positive bowel sounds LEGS: Right lower extremity dressing trace shadowing and intact. No calf tenderness. Positive DP pulse. NERVOUS SYSTEM: Cranial N 2-12 grossly normal. Skin: warm and dry, no rash - Labs CBC & Chem 7: 02/19/25 03:04 Labs: Abnormal Lab Results - Last 24 Hours (Table) 02/19/25 Range/Units 03:04 WBC 12.90 H (4.50-10.00) X 10*3/uL RBC 3.30 L (4.10-5.20) X 10*6/uL Hgb 10.4 L (12.0-15.0) g/dL Hct 30.7 L (37.2-46.3) % Neutrophils # 9.38 H (1.80-7.70) X 10*3/uL Monocytes # 1.39 H (0.20-1.00) X 10*3/uL Eosinophils # 0.01 L (0.04-0.35) X 10*3/uL Assessment and Plan Assessment: Right knee osteoarthritis, failed conservative management status post right tota l knee arthroplasty PONV Asthma, stable Seasonal allergies, stable Hypothyroidism Former nicotine dependence Plan: Continue on current medication regime ,monitoring and symptomatic treatment. Discharge planning in progress as per primary. Maintain aggressive pulmonary toileting, incentive spirometer reinforced. Pain management and DVT prophylaxis as per primary. Follow-up with PCP in 1 week. The impression and plan of care has been dictated as directed. : I performed a history and examination of this patient, discussed the same with the dictator. I agree with the dictator's note ,documented as a scribe. Any additional findings or plans will be noted. CBC
== END 2025-02-19 13:29 | disposition home or self-care (01) ==
LOC: OR 05:46 → 4SSUR 09:27 → OR 02-19 13:29
PROVIDERS: ATTEND Orthopaedic Surgery
DX: M17.11 Unilateral primary osteoarthritis, right knee (principal); J45.909 Unspecified asthma, uncomplicated; E78.5 Hyperlipidemia, unspecified; E03.9 Hypothyroidism, unspecified; Z87.891 Personal history of nicotine dependence; Z80.1 Family history of malignant neoplasm of trachea, bronchus and lung; Z88.5 Allergy status to narcotic agent; Z91.040 Latex allergy status; Z79.51 Long term (current) use of inhaled steroids; Z79.1 Long term (current) use of non-steroidal anti-inflammatories (NSAID); Z79.02 Long term (current) use of antithrombotics/antiplatelets; Z79.01 Long term (current) use of anticoagulants; Z79.890 Hormone replacement therapy; Z79.899 Other long term (current) drug therapy
CPT/HCPCS: 94640 ×2; 97161; 64448; 64473; 85025; 73560; 27447; C1713 ×2; C1776; C1751; J2250; J1100; J0690 ×2; J2405; J3010; J1171; J2470

== ENCOUNTER → 2025-06-25 | Outpatient (CLI) | payer BC ==
--- NOTE | 2025-06-25 15:31 | MM ---
Reason for Exam: Screening (asymptomatic). Last mammogram was performed 1 year(s) and 5 month(s) ago. Patient History: Menarche at age 15. First Full-Term at age 26. Postmenopausal. Unspecified Hormone for 11 years from age 35 until age 46. Risk Values: Yanet 5 year model risk: 1.4%. NCI Lifetime model risk: 6.2%. Prior Study Comparison: 07/01/2021 Bilateral MG 3D screening mammo w/cad, Unknown. 10/13/2022 Bilateral MG 3D screening mammo w/cad, Unknown. 12/29/2023 Bilateral MG 3D screening mammo w/cad, [facility]. Tissue Density: There are scattered areas of fibroglandular density. Findings: Analyzed By CAD. There is no suspicious group of microcalcifications or new suspicious mass in either breast. Overall Assessment: Negative, BI-RAD 1 Management: Screening Mammogram of both breasts in 1 year. Patient should continue monthly self-breast exams. A clinical breast exam by your physician is recommended on an annual basis. This exam should not preclude additional follow-up of suspicious palpable abnormalities. Note on Yanet scores and lifetime risk: 1. A Yanet score greater than 3% is considered moderate risk. If this is the case, consider specialist referral to assess eligibility for a risk reducing agent. 2. If overall lifetime risk for the development of breast cancer is 20% or higher, the patient may qualify for future screening with alternating mammogram and breast MRI. [facility], , 06/25/2025 3:28 PM. Electronically signed and approved by: William Becerril M.D. Radiologist
== END | disposition home or self-care (01) ==
LOC: RADMAMWWP 09:15
PROVIDERS: ATTEND Family Medicine
DX: Z12.31 Encounter for screening mammogram for malignant neoplasm of breast (principal); R92.323 Mammographic fibroglandular density, bilateral breasts; Z78.0 Asymptomatic menopausal state
CPT/HCPCS: 77063; 77067